=== PATIENT | male | born 1945 | race Caucasian/White ===

== ENCOUNTER 2025-03-29 15:04 | Outpatient (CLI) | payer OTHER ==
[2025-03-29 16:02] LABS: #Basophils Less than 0.03 10x3/uL (0.0-0.2); #Eosinophils 0.17 10x3/uL (0.0-0.7); #Monocytes 0.90 10x3/uL (0.11-0.59); #Neutrophils 5.16 10x3/uL (1.40-6.50); %Basophils 0.1 % (0.0-1.0); %Eosinophils 2.1 % (0.0-10.0); %Lymphocytes 23.2 % (21.0-51.0); %Monocytes 11.0 % (0.0-10.0); %Neutrophils 63.1 % (42.0-75.0); Hematocrit 34.0 % (42.0-52.0); Hemoglobin 10.9 g/dL (14.0-18.0); Mean Corpuscular Hemoglobin 29.9 pg (27.0-31.0); Mean Corpuscular Volume 93.2 fL (78.0-98.0); Platelet Count 359 10x3/uL (130-400); Red Blood Cell (RBC) Count 3.65 mill/uL (4.70-6.10); White Blood Cell (WBC) Count 8.18 10x3/uL (4.8-10.8)
[2025-03-29 16:37] LABS: Anion Gap 14 mmol/L (10-20); BUN (Urea Nitrogen) 12 mg/dL (8.4-25.7); Calc. Creatinine Clearance 0 mL/min (70-130); Calcium 9.3 mg/dL (7.8-10.44); Carbon Dioxide 23 mmol/L (23-31); Chloride 103 mmol/L (98-107); Glucose 85 mg/dL (83-110); Potassium 4.0 mmol/L (3.5-5.1); Sodium 136 mmol/L (136-145)
== END 2025-03-29 15:05 | disposition home or self-care (01) ==
LOC: LABBT 15:04
PROVIDERS: ATTEND Orthopaedic Surgery
DX: Z01.818 Encounter for other preprocedural examination (principal); M86.9 Osteomyelitis, unspecified
CPT/HCPCS: 71046; 80048; 85025; 93005; 93010

== ENCOUNTER 2025-04-03 08:10 | Inpatient (IN) | payer OTHER ==
[2025-04-03] MEDS ORDERED: Lidocaine 1% PF 5 ML VIAL ONE (09:56)
[2025-04-03] MEDS ORDERED: fentaNYL PF 100 MCG/2 ML SYRINGE ONE ×5 (09:56→12:55)
[2025-04-03] MEDS ORDERED: Ondansetron PF 4 MG/2 ML Vial ONE (09:56)
[2025-04-03] MEDS ORDERED: CEFAZOLIN 2 GM VIAL ONE (10:12)
[2025-04-03] MEDS ORDERED: PROPOFOL 200 MG/20 ML VIAL ONE (10:25)
[2025-04-03] MEDS ORDERED: PHENYLEPHRINE-NS 100 MCG/ML 10 ML SYRINGE ONE (10:25)
[2025-04-03] MEDS ORDERED: Communication Order-Pharmacy FS SCH (12:15)
[2025-04-03] MEDS: TETANUS, DIPHTHERIA TOX,ADULT (TDVAX) 0.5 ML VIAL IM ONE (16:55)
[2025-04-03 17:03] VITALS: BMI 16.2
[2025-04-03] MEDS: Ketorolac Tromethamine 30 MG (1 mL) VIAL IVP SCH (18:00)
[2025-04-04 05:48] LABS: #Basophils Less than 0.03 10x3/uL (0.0-0.2); #Eosinophils Less than 0.03 10x3/uL (0.0-0.7); #Monocytes 0.81 10x3/uL (0.11-0.59); #Neutrophils 7.55 10x3/uL (1.40-6.50); %Basophils 0.1 % (0.0-1.0); %Eosinophils 0.0 % (0.0-10.0); %Lymphocytes 14.3 % (21.0-51.0); %Monocytes 8.2 % (0.0-10.0); %Neutrophils 76.9 % (42.0-75.0); Hematocrit 29.4 % (42.0-52.0); Hemoglobin 9.6 g/dL (14.0-18.0); Mean Corpuscular Hemoglobin 30.1 pg (27.0-31.0); Mean Corpuscular Volume 92.2 fL (78.0-98.0); Platelet Count 361 10x3/uL (130-400); Red Blood Cell (RBC) Count 3.19 mill/uL (4.70-6.10); White Blood Cell (WBC) Count 9.83 10x3/uL (4.8-10.8)
[2025-04-04 06:07] LABS: Vancomycin, Random Less than 1.4 ug/mL (See Comment)
[2025-04-04 06:16] LABS: ALT (SGPT) Less than 7 U/L (Less than 45); AST (SGOT) 19 U/L (11-34); Albumin 2.6 g/dL (3.1-4.5); Alkaline Phosphatase 74 U/L (40-110); Anion Gap 13 mmol/L (10-20); BUN (Urea Nitrogen) 11 mg/dL (8.4-25.7); Bilirubin, Total 0.2 mg/dL (0.3-1.2); Calc. Creatinine Clearance 57 mL/min (70-130); Calcium 8.6 mg/dL (7.8-10.44); Carbon Dioxide 24 mmol/L (23-31); Chloride 103 mmol/L (98-107); Globulin 3.9 g/dL (2.4-3.5); Glucose 107 mg/dL (83-110); Potassium 3.9 mmol/L (3.5-5.1); Sodium 136 mmol/L (136-145)
[2025-04-04] MEDS: Thiamine 100 MG TAB PO SCH (08:52)
[2025-04-04] MEDS: Multivitamin W/ Minerals 1 TAB PO SCH (08:52)
[2025-04-04] MEDS: Pantoprazole 40 MG DR.TAB PO SCH (08:52)
[2025-04-04 09:28] VITALS: BMI 16.2
[2025-04-04] MEDS: Vancomycin 1 GM in Premix 1 BAG IVPB SCH ×2 (09:47→19:27)
[2025-04-04] MEDS ORDERED: Vancomycin 1.25 GM / NS 250 ML VIAL-2-BAG IVPB SCH (10:15)
[2025-04-04] MEDS: HYDROcodone/Acetaminophen 5/325 mg Tablet PO PRN (15:53)
[2025-04-05 07:02] LABS: Vancomycin, Random 18.3 ug/mL (See Comment)
[2025-04-05] MEDS: Ondansetron PF 4 MG/2 ML Vial IVP PRN (12:11)
[2025-04-06 07:12] LABS: Calc. Creatinine Clearance 64.0 mL/min (70-130)
[2025-04-06] MEDS ORDERED: Lidocaine 1% PF 5 ML VIAL ONE ×2 (12:45)
[2025-04-06] MEDS ORDERED: Sodium Bicarbonate 2.5 MEQ/5 ML SDV ONE (12:45)
[2025-04-07 06:01] LABS: #Basophils Less than 0.03 10x3/uL (0.0-0.2); #Eosinophils 0.42 10x3/uL (0.0-0.7); #Monocytes 0.93 10x3/uL (0.11-0.59); #Neutrophils 6.79 10x3/uL (1.40-6.50); %Basophils 0.2 % (0.0-1.0); %Eosinophils 4.2 % (0.0-10.0); %Lymphocytes 18.4 % (21.0-51.0); %Monocytes 9.2 % (0.0-10.0); %Neutrophils 67.3 % (42.0-75.0); Hematocrit 32.5 % (42.0-52.0); Hemoglobin 10.3 g/dL (14.0-18.0); Mean Corpuscular Hemoglobin 30.1 pg (27.0-31.0); Mean Corpuscular Volume 95.0 fL (78.0-98.0); Platelet Count 396 10x3/uL (130-400); Red Blood Cell (RBC) Count 3.42 mill/uL (4.70-6.10); White Blood Cell (WBC) Count 10.09 10x3/uL (4.8-10.8)
[2025-04-07 06:16] LABS: Anion Gap 14 mmol/L (10-20); BUN (Urea Nitrogen) 18 mg/dL (8.4-25.7); Calc. Creatinine Clearance 67 mL/min (70-130); Calcium 9.4 mg/dL (7.8-10.44); Carbon Dioxide 27 mmol/L (23-31); Chloride 99 mmol/L (98-107); Glucose 96 mg/dL (83-110); Potassium 3.9 mmol/L (3.5-5.1); Sodium 136 mmol/L (136-145)
[2025-04-09 07:07] LABS: #Basophils Less than 0.03 10x3/uL (0.0-0.2); #Eosinophils 0.32 10x3/uL (0.0-0.7); #Monocytes 1.02 10x3/uL (0.11-0.59); #Neutrophils 6.30 10x3/uL (1.40-6.50); %Basophils 0.2 % (0.0-1.0); %Eosinophils 3.5 % (0.0-10.0); %Lymphocytes 16.1 % (21.0-51.0); %Monocytes 11.1 % (0.0-10.0); %Neutrophils 68.2 % (42.0-75.0); Hematocrit 32.5 % (42.0-52.0); Hemoglobin 10.5 g/dL (14.0-18.0); Mean Corpuscular Hemoglobin 29.7 pg (27.0-31.0); Mean Corpuscular Volume 92.1 fL (78.0-98.0); Platelet Count 398 10x3/uL (130-400); Red Blood Cell (RBC) Count 3.53 mill/uL (4.70-6.10); White Blood Cell (WBC) Count 9.23 10x3/uL (4.8-10.8)
[2025-04-09 07:16] LABS: Anion Gap 15 mmol/L (10-20); BUN (Urea Nitrogen) 19 mg/dL (8.4-25.7); Calc. Creatinine Clearance 70 mL/min (70-130); Calcium 9.3 mg/dL (7.8-10.44); Carbon Dioxide 25 mmol/L (23-31); Chloride 98 mmol/L (98-107); Glucose 97 mg/dL (83-110); Potassium 4.2 mmol/L (3.5-5.1); Sodium 134 mmol/L (136-145)
[2025-04-11 05:29] LABS: #Basophils Less than 0.03 10x3/uL (0.0-0.2); #Eosinophils 0.25 10x3/uL (0.0-0.7); #Monocytes 1.01 10x3/uL (0.11-0.59); #Neutrophils 4.95 10x3/uL (1.40-6.50); %Basophils 0.2 % (0.0-1.0); %Eosinophils 3.1 % (0.0-10.0); %Lymphocytes 22.1 % (21.0-51.0); %Monocytes 12.4 % (0.0-10.0); %Neutrophils 60.6 % (42.0-75.0); Hematocrit 30.7 % (42.0-52.0); Hemoglobin 10.1 g/dL (14.0-18.0); Mean Corpuscular Hemoglobin 29.8 pg (27.0-31.0); Mean Corpuscular Volume 90.6 fL (78.0-98.0); Platelet Count 381 10x3/uL (130-400); Red Blood Cell (RBC) Count 3.39 mill/uL (4.70-6.10); White Blood Cell (WBC) Count 8.16 10x3/uL (4.8-10.8)
[2025-04-11 05:45] LABS: ALT (SGPT) 19 U/L (Less than 45); AST (SGOT) 33 U/L (11-34); Albumin 3.0 g/dL (3.1-4.5); Alkaline Phosphatase 70 U/L (40-110); Anion Gap 11 mmol/L (10-20); BUN (Urea Nitrogen) 22 mg/dL (8.4-25.7); Bilirubin, Total 0.2 mg/dL (0.3-1.2); Calc. Creatinine Clearance 61 mL/min (70-130); Calcium 9.3 mg/dL (7.8-10.44); Carbon Dioxide 28 mmol/L (23-31); Chloride 100 mmol/L (98-107); Globulin 4.0 g/dL (2.4-3.5); Glucose 99 mg/dL (83-110); Potassium 3.8 mmol/L (3.5-5.1); Sodium 135 mmol/L (136-145)
[2025-04-11] MEDS ORDERED: Milk Of Magnesia 30 ML UDCUP PO PRN (10:49)
[2025-04-11] MEDS: Milk Of Magnesia 30 ML UDCUP PO SCH (11:03)
[2025-04-11 16:46] VITALS: BP 144/75; TEMP 98
[2025-04-11] MEDS ORDERED: Senokot S 8.6-50 MG TAB PO SCH (21:00)
[2025-04-11] MEDS ORDERED: Mupirocin 1 GM TUBE TP SCH (21:00)
== END 2025-04-11 18:28 | DRG 510 ==
LOC: SDC 08:10 → T4-A 16:47 → OBSVTOIN 04-04 12:40
PROVIDERS: ADMIT Orthopaedic Surgery; ATTEND Internal Medicine
PROC: 0PBJ0ZZ Excision of Left Radius, Open Approach (ICD-10-PCS; principal; 2025-04-03)
PROC: 0RBP0ZZ Excision of Left Wrist Joint, Open Approach (ICD-10-PCS; 2025-04-03)
PROC: 0PBL0ZZ Excision of Left Ulna, Open Approach (ICD-10-PCS; 2025-04-03)
PROC: 0PBN0ZZ Excision of Left Carpal, Open Approach (ICD-10-PCS; 2025-04-03)
PROC: 01B60ZZ Excision of Radial Nerve, Open Approach (ICD-10-PCS; 2025-04-03)
PROC: 0XH Anatomical Regions, Upper Extremities, Insertion (ICD-10-PCS; 2025-04-03)
PROC: 3E03329 Introduction of Other Anti-infective into Peripheral Vein, Percutaneous Approach (ICD-10-PCS; 2025-04-03)
PROC: 02HV33Z Insertion of Infusion Device into Superior Vena Cava, Percutaneous Approach (ICD-10-PCS; 2025-04-06)
PROC: B5181ZA Fluoroscopy of Superior Vena Cava using Low Osmolar Contrast, Guidance (ICD-10-PCS; 2025-04-06)
DX: M00.9 Pyogenic arthritis, unspecified (principal); E43 Unspecified severe protein-calorie malnutrition; M86.8X4 Other osteomyelitis, hand; S42.401K Unspecified fracture of lower end of right humerus, subsequent encounter for fracture with nonunion; M19.032 Primary osteoarthritis, left wrist; M65.842 Other synovitis and tenosynovitis, left hand; E78.5 Hyperlipidemia, unspecified; I25.10 Atherosclerotic heart disease of native coronary artery without angina pectoris; G89.29 Other chronic pain; F39 Unspecified mood [affective] disorder; Z88.5 Allergy status to narcotic agent; K21.9 Gastro-esophageal reflux disease without esophagitis; R11.0 Nausea; K59.00 Constipation, unspecified; Z95.1 Presence of aortocoronary bypass graft; Z79.899 Other long term (current) drug therapy
CPT/HCPCS: 36415; 36573; 80048; 80053; 80202; 82565; 85025; 86141; 87040; 87070; 87077; 87186; 87205; C1751; J0665; J0692; J0878; J1100; J1885; J2405; J2704; J3010; J3373; J7050; Q0169